=== PATIENT | male | born 1990 | race Caucasian/White ===

== ENCOUNTER 2016-10-18 22:45 | Emergency (ER) | payer MEDICAID ==
[2016-10-18 22:51] VITALS: RESP 16; TEMP 98.2
[2016-10-18] MEDS ORDERED: OXYCODONE/APAP 5/325 TAB PO ONE (23:37)
--- NOTE | 2016-10-19 00:10 | EDPHY ---
H & P Time Seen by Provider: 10/18/16 23:30 HPI/ROS: CHIEF COMPLAINT: Left foot pain HISTORY OF PRESENT ILLNESS: This is a 26-year-old male patient presenting to the emergency department complaining of left pinky toe foot pain. Patient states him in his friends were rock climbing this morning around 0730, he stated his foot slipped off for Rock got caught between another rock. Patient states he has been having some pain to his left pinky toe with bruising since this morning increased pain with weight-bearing. Denies any other injuries REVIEW OF SYSTEMS: Constitutional: No fever, no chills. Eyes: No discharge. No blurred vision ENT: No sore throat. Cardiovascular: No chest pain, no palpitations. Respiratory: No cough, no shortness of breath. Gastrointestinal: No abdominal pain, no vomiting. Musculoskeletal: No back pain. Left foot pain Skin: No rashes. Neurological: No headache. Smoking Status: Never smoked Physical Exam: General Appearance: Alert and no distress. HEENT: Normocephalic atraumatic Pupils equal and round no injection. Respiratory: Chest is nontender, lungs are clear to auscultation. Cardiac: regular rate and rhythm Gastrointestinal: Abdomen is soft and nontender Musculoskeletal: Vertebral cervical spine nontender on palpation. Full range of motion Extremities: Left 5th metatarsal tenderness on palpation bruising noted no obvious deformity. Positive CMS intact Skin: No rashes. No lacerations. Scabs noted to left lower extremity patient states" those are old injuries from rock climbing" Constitutional: Initial Vital Signs Temperature (C) 36.8 C 10/18/16 22:49 Heart Rate 92 10/18/16 22:49 Respiratory Rate 16 10/18/16 22:49 Blood Pressure 134/84 H 10/18/16 22:49 O2 Sat (%) 96 10/18/16 22:49 O2 Delivery Mode Room Air Allergies/Adverse Reactions: No Known Allergies Allergy (Verified 10/25/14 22:59) Home Medications: Medication Instructions Recorded NK [No Known Home Meds] 10/18/16 Medical Decision Making - Diagnostics Imaging Results: Imaging Impressions Foot X-Ray 10/18/16 23:05 Impression: Negative for acute osseous abnormality or radiopaque foreign body. ED Course/Re-evaluation: Discussed ED plan of care: X-ray left foot, pain medication 2330: Discussed x-ray results no acute fracture seen. Discharge home---> stable, Leonel wrap placed to left foot. Patient ambulatory with antalgic gait offered postop shoe to patient he declined. Discussed discharge instructions with patient Differential Diagnosis: Other differential diagnosis considered but not limited to metatarsal fracture, calcaneal fracture, and ankle dislocation - Data Points Medications Given: Discontinued Medications Oxycodone/Acetaminophen (Percocet 5/325) 1 tab PO EDNOW ONE Stop: 10/18/16 23:38 Last Admin: 10/18/16 23:43 Dose: 1 tab Departure - Departure Disposition: Home, Routine, Self-Care Clinical Impression: Contusion of foot including toes Qualifiers: Encounter type: initial encounter Laterality: left Qualified Code(s): S90.122A - Contusion of left lesser toe(s) without damage to nail, initial encounter Condition: Good Instructions: Foot Contusion (ED) Additional Instructions: 1. Ibuprofen 600 mg-100 mg every 6-8 hours 2. Decrease prolonged pressure on left foot for the next few days. Elevate when possible 3. Ice 15 minutes several times a day to help decrease swelling Referrals: NONE *PRIMARY CARE P,. [Primary Care Provider] - As per Instructions [facility],. [Clinic] - As per Instructions
[2016-10-19 00:19] VITALS: BP 127/85; PULSE 82; O2SAT 98
== END 2016-10-19 00:18 | disposition home or self-care (01) ==
DX: S90.122A Contusion of left lesser toe(s) without damage to nail, initial encounter (principal); W23.1XXA Caught, crushed, jammed, or pinched between stationary objects, initial encounter

== ENCOUNTER 2017-01-27 19:17 | Emergency (ER) | payer MEDICAID ==
[2017-01-27 19:22] VITALS: BP 120/84; PULSE 91; RESP 18; TEMP 97.9; O2SAT 95
--- NOTE | 2017-01-27 19:32 | EDPHY ---
H & P Stated Complaint: right ankle inj last night Time Seen by Provider: 01/27/17 19:31 HPI/ROS: HPI: This is a 26-year-old male who presents with Chief Complaint: right ankle injury last night Location: Right ankle Quality: Injury Duration: Last night Signs and Symptoms: No bleeding, no radiation, no numbness, no weakness, no tingling, no incontinence, no decreased range of motion, + pain, + swelling Timing: Acute Severity: 11/11 Context: Patient reports that he was skateboarding around midnight last night, when he was doing a jump and he came down and rolled his ankle outward with immediate pain and inability to bear weight. He stepped skateboarding and went home and drink alcohol. He woke up this afternoon with constant moderate to severe, nonradiating pain that worsened with weight-bearing. He has been trying to ice it all day and stay off of it but the pain continued. Modifying Factors: See above Comment: ROS: see HPI Constitutional: No fever, no chills, no weight loss Eyes: No blurred vision Respiratory: No shortness of breath, no cough Cardiovascular: No chest pain Gastrointestinal: No nausea, no vomiting no diarrhea Genitourinary: No dysuria Extremities: No myalgias Neurologic: No weakness, no numbness Skin: No rashes Hematologic: No bruising, no bleeding MEDICAL/SURGICAL/SOCIAL HISTORY: Medical history: Generally healthy. Does not take any regular medications. Surgical history: Left elbow bursa arthroscopic surgery Social history: Employed CONSTITUTIONAL: Well-developed well-nourished young adult white male awake and alert, no obvious distress HEENT: Atraumatic and normocephalic, PERRL, EOMI. Tympanic membranes clear. Oropharynx clear, no exudate and moist pink mucosa. Airway patent. No lymphadenopathy. No meningismus. Cardiovascular: Normal S1/S2, regular rate, regular rhythm, without murmur rub or gallop. PULMONARY/CHEST: Symmetrical and nontender. Clear to auscultation bilaterally. Good air movement. No accessory muscle usage. ABDOMEN: Soft, nondistended, nontender, no rebound, no guarding, no peritoneal signs, no masses or organomegaly. No CVAT. EXTREMITIES: 2/2 pedal pulses, RIGHT Ankle; Plantar flexion to 50, dorsiflexion to 20. Foot inversion to 35 degree. Moderate swelling and tenderness Anterior talofibular ligament. Moderate swelling and tenderness Calcaneofibular ligament, mild swelling and tenderness posterior talofibular ligament, no tenderness posterior inferior tibiofibular ligament Achilles tendon intact. no deformities, no clubbing, no cyanosis or edema. NEUROLOGICAL: no focal neuro deficits. GCS 15. SKIN: Warm and dry, no erythema. no rash. Good capillary refill. Source: Patient Exam Limitations: No limitations - Personal History Current Tetanus/Diphtheria Vaccine: Yes Tetanus Vaccine Date: 5 years ago - Medical/Surgical History Hx Asthma: No Hx Chronic Respiratory Disease: No Hx Diabetes: No Hx Cardiac Disease: No Hx Renal Disease: No Hx Cirrhosis: No Hx Alcoholism: No Hx HIV/AIDS: No Hx Splenectomy or Spleen Trauma: No Other PMH: PMH:none. PSH: Left elbow bursa surgery - Social History Smoking Status: Never smoked Constitutional: Initial Vital Signs Temperature (C) 36.6 C 01/27/17 19:19 Heart Rate 91 01/27/17 19:19 Respiratory Rate 18 01/27/17 19:19 Blood Pressure 120/84 H 01/27/17 19:19 O2 Sat (%) 95 01/27/17 19:19 O2 Delivery Mode Room Air Allergies/Adverse Reactions: No Known Allergies Allergy (Verified 01/27/17 19:21) Home Medications: Medication Instructions Recorded NK [No Known Home Meds] 10/18/16 Medical Decision Making - Diagnostics Imaging Results: Imaging Impressions Ankle X-Ray 01/27/17 19:30 Impression: Dorsal lateral ankle sprain. Procedures: Procedure: Splint placement. A right walking boot was applied by the Emergency Room library cataloging technician. After application of the walking boot I returned and re-examined the patient. The splint was adequately immobilizing the joint and distal to the splint the patient's circulation and sensation was intact. ED Course/Re-evaluation: Right ankle x-ray and oral medications ordered Given p.o. Ultram and ibuprofen and ice pack applied with adequate relief pain Right ankle x-ray my read via PACs shows moderate soft tissue swelling over the medial malleolus; no fracture/dislocation Placed in right walking boot, given crutches, advised toe-touch weight-bearing and slowly advance as tolerated. No signs of neurovascular compromise/tenting of skin/compartment syndrome/ extremities and joints examined above and below area of concern and are neurovascularly intact. Differential Diagnosis: Differential diagnosis includes but is not limited to fibular fracture, midfoot fracture, ligament injury, nerve injury, sprain. - Data Points Medications Given: Discontinued Medications Ibuprofen (Motrin) 800 mg PO EDNOW ONE Stop: 01/27/17 19:38 Last Admin: 01/27/17 19:44 Dose: 800 mg Tramadol HCl (Ultram) 50 mg PO EDNOW ONE Stop: 01/27/17 19:38 Last Admin: 01/27/17 19:44 Dose: 50 mg Departure - Departure Disposition: Home, Routine, Self-Care Clinical Impression: Grade 2 ankle sprain Qualifiers: Encounter type: initial encounter Laterality: right Qualified Code(s): S93.401A - Sprain of unspecified ligament of right ankle, initial encounter Condition: Good Instructions: Ankle Sprain (ED) Additional Instructions: Wear the walking boot continuously except to shower and sleep until pain free. Use the crutches to immobilize the right lower extremity; toe-touch weight- bearing status to start. Take ibuprofen 600-800 mg every 6-8 hours with food as needed for pain and inflammation. Apply ice for 30 minutes at a time; 2-3 times per day for the next 1-2 days. Elevate extremity as much as possible to reduce the swelling. Follow up with Orthopedics in 5-7 days at which time they will evaluate and recommend with you if conservative management versus surgery is indicated. The x-rays obtained in the emergency department today demonstrate no evidence of an obvious fracture. Sometimes fractures are not obvious on the initial set of x-rays performed in the ED. For this reason, you should have repeat x-rays performed in 7-10 days if you are having any pain exclude the possibility of an occult fracture. Referrals: Suhail Hogue MD [Medical Doctor] - As per Instructions
[2017-01-27] MEDS ORDERED: traMADol 50 MG TAB PO ONE (19:37)
[2017-01-27] MEDS ORDERED: IBUPROFEN 800 MG TAB PO ONE (19:37)
== END 2017-01-27 20:17 | disposition home or self-care (01) ==
DX: S93.401A Sprain of unspecified ligament of right ankle, initial encounter (principal); X50.9XXA Other and unspecified overexertion or strenuous movements or postures, initial encounter; Y93.51 Activity, roller skating (inline) and skateboarding
CPT/HCPCS: L4386

== ENCOUNTER 2018-05-19 19:30 | Emergency (ER) | payer MEDICAID, OTHER ==
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
[2018-05-19] MEDS ORDERED: CHLORDIAZEPOXIDE 25MG PREPK#6 BTL TAKEHOME ONE (19:52)
[2018-05-19 20:14] VITALS: BP 121/70
== END 2018-05-19 20:16 | disposition home or self-care (01) ==
DX: F10.120 Alcohol abuse with intoxication, uncomplicated (principal)

== ENCOUNTER 2018-06-16 16:25 | Emergency (ER) | payer SELFPAY ==
[2018-06-16 16:48] VITALS: BP 127/83
== END 2018-06-16 18:04 | disposition left against medical advice (07) ==
DX: Z53.21 Procedure and treatment not carried out due to patient leaving prior to being seen by health care provider (principal); R07.81 Pleurodynia